=== PATIENT | female | born 1970 | race Caucasian/White ===

== ENCOUNTER 2019-11-27 09:38 | Outpatient (CLI) | payer BC, SELFPAY ==
--- NOTE | 2019-11-27 09:47 | MM_ITS ---
WS: [id number] BILATERAL DIGITAL DIAGNOSTIC MAMMOGRAM MAMMOGRAPHY WITH CAD CLINICAL INFORMATION: 6 MO F/U/ SILVANA NODULES/ABNORMAL MAMMOGRAM COMPARISON: 04/18/2019 and 04/04/2019 TECHNIQUE: Bilateral CC, MLO, and ML views. FINDINGS: The breasts are composed of heterogeneous fibroglandular density, which can limit the detection of sm all underlying mass lesions. Stable 1 cm asymmetry in the lateral right breast best seen on the cc vi ew. Stable asymmetric density in the upper outer left breast with nodular breast tissue. No new findi ngs. Ultrasound is pending. ULTRASOUND BREAST BILATERAL TECHNIQUE: Ultrasound bilateral breast focused area of concern. CLINICAL INFORMATION: 6 MO F/U/ SILVANA NODULES/ABNORMAL MAMMOGRAM FINDINGS: Multiple small cysts in the right breast some with a small amount of internal debris are unchanged an d have a benign appearance. Additional Incidental small cysts left breast. Solid nodule 3:00 position 2 cm from the nipple measures 5.0 x 4.2 x 5.6 mm. This is not significantl y changed. Additional hypoechoic slightly lobulated lesion measuring 6.2 x 3.8 x 6.4 mm. This lesion is similar in appearance and slightly increased in size compared to previous. Previously this lesion measures 5.3 x 3.9 x 5.6 mm. These lesions are solid in appearance and may represent fibroadenomas as previously discussed but indeterminant and recommend ultrasound-guided biopsy for definitive evaluat ion. ULTRASOUND GUIDED BIOPSY RECOMMENDED OF THE 2 SOLID LEFT BREAST LESIONS. MM/[id number] IMPRESSION: BI-RADS: 4A-Suspicious: Low FOLLOW UP: US Guided Biopsy Recommended
== END 2019-11-27 09:39 | disposition home or self-care (01) ==
LOC: RADSHAW 09:42
PROVIDERS: PCP Internal Medicine; Visit Provider Nurse Practitioner Family
DX: R92.8 Other abnormal and inconclusive findings on diagnostic imaging of breast (principal); N63.25 Unspecified lump in the left breast, overlapping quadrants
CPT/HCPCS: 76642; 77066